=== PATIENT | male | born 1980 | race Caucasian/White ===

== ENCOUNTER 2019-01-11 12:17 | Emergency (ER) | payer OTHER ==
[~2019-01-11] VITALS: Ht 180.3 cm; Wt 94.8 kg
[2019-01-11 14:17] VITALS: BP 135/78
== END 2019-01-11 15:09 | disposition home or self-care (01) ==
LOC: ER 12:21
DX: S80.02XA Contusion of left knee, initial encounter (principal); W01.0XXA Fall on same level from slipping, tripping and stumbling without subsequent striking against object, initial encounter; Y93.89 Activity, other specified; Y92.89 Other specified places as the place of occurrence of the external cause; Y99.8 Other external cause status
CPT/HCPCS: 73560; 93971